=== PATIENT | male | born 1995 | race Caucasian/White ===

== ENCOUNTER 2020-05-18 06:53 | Outpatient (NON) | payer OTHER, SELFPAY ==
[2020-05-19 18:31] LABS: SARS-CoV-2 RNA PCR Negative
== END 2020-05-18 06:54 ==
PROVIDERS: PCP Family Medicine; Visit Provider Family Medicine
DX: Z20.828 Contact with and (suspected) exposure to other viral communicable diseases (principal); R09.89 Other specified symptoms and signs involving the circulatory and respiratory systems
CPT/HCPCS: 87635; C9803; U0003

== ENCOUNTER 2021-08-13 20:56 | Emergency (ER) | payer OTHER, SELFPAY ==
[2021-08-13] VITALS (9 sets, daily range): BP systolic 107–138; BP diastolic 78–90; PULSE 69–91; RESP 18–22; TEMP 37.2; O2SAT 96
--- NOTE | ~2021-08-13 | XR_ITS ---
EXAMINATION: XR chest 2V DATE: 08/13/2021 21:39 INDICATION: Cough and wheezing TECHNIQUE: PA and lateral views of the chest are obtained. COMPARISON: 12/09/2014 FINDINGS: The lungs are free of acute opacities. There is no pleural effusion or pneumothorax. The ca rdiomediastinal silhouette is normal. The visualized bones and soft tissues are unremarkable. IMPRESSION: 1. No acute cardiopulmonary abnormality. Reviewed, dictated and finalized at location [facility]
--- NOTE | 2021-08-13 21:15 | ED.SOB ---
HPI - SOB/Dyspnea General Chief Complaint: Shortness of Breath/Dyspnea Stated Complaint: SOB Time Seen by Provider: 08/13/21 21:06 Source: patient Mode of arrival: ambulatory Limitations: no limitations History of Present Illness HPI Narrative: This is a 25-year-old male that presents to the emergency department for shortness of breath noted since last night. Associated with a productive cough and wheezing. No previous history of asthma. Is not a cigarette smoker, but does report occasional vaping. He is COVID vaccinated. Denies fever, or sore throat. Related Data Allergies Allergy/AdvReac Type Severity Reaction Status Date / Time cefprozil Allergy Unknown Unverified 12/09/14 18:35 Review of Systems Review of Systems: CONSTITUTIONAL: Denies fever ENT: Denies sore throat RESPIRATORY: Reports cough and dyspnea. All systems reviewed & are unremarkable except as noted in HPI and below PMFSH Past Medical History Medical History (Updated 08/13/21 @ 23:38 by Blossmo Ward PA-C) History of anxiety Social History Social History (Updated 08/13/21 @ 21:16 by Blossom Ward PA-C) Smoking status: Current some day smoker Tobacco type: e-cigarettes/vaping Exam Narrative: GENERAL: Well-appearing, well-nourished, and in no acute distress. HEAD: Normocephalic, atraumatic. EYES: EOMI. ENT: Nares clear, no rhinorrhea or epistaxis. Mucous membranes moist. Oropharynx without tonsillar hypertrophy exudate or other lesions. Bilateral TMs pearly kincaid non-bulging NECK: Supple. No adenopathy or masses. CHEST: No respiratory distress. Diffuse expiratory wheezing. No rales or rhonchi HEART: Regular rate and rhythm. No murmur heard. Normal peripheral pulses. EXTREMITIES: Normal range of motion. No edema. SKIN: Warm, dry, no rash. NEURO: No focal deficits. Alert and oriented x3. PSYCH: Normal mood and affect Course Reevaluation(s) Reevaluation #1: Patient with improved aeration. Only very mild expiratory wheezes now noted. Patient reports feeling much better Date: 08/13/21 Time: 23:35 Vital Signs Vital signs: Vital Signs Temperature 98.9 F 08/13/21 21:06 Pulse Rate 91 08/13/21 21:06 Respiratory Rate 22 H 08/13/21 21:06 Blood Pressure 138/90 08/13/21 21:06 Pulse Oximetry 96 08/13/21 21:06 Temperature 98.9 F 08/13/21 21:06 Pulse Rate 84 08/13/21 23:12 Respiratory Rate 21 H 08/13/21 23:12 Blood Pressure 133/82 08/13/21 22:05 Pulse Oximetry 96 08/13/21 22:05 MDM - SOB/Dyspnea MDM Narrative Medical decision making narrative: Patient presents to the ER for cough with wheezing. He is afebrile and nontoxic-appearing. Oxygen saturation has remained normal on room air. Chest x-ray without acute cardiopulmonary abnormality. Patient is COVID vaccinated. Reports he had a negative Covid test today. Patient with diffuse wheezing on exam upon arrival. Given dose of steroid and nebulizer treatments with relief. Aeration improved, patient reports feeling much better and ready for discharge. Patient will be continued on oral steroids and prescribed albuterol as needed. He is to follow-up with his primary care doctor. He was given warnings to return to the ER Imaging Data Radiologist's impression: ITS Impressions Chest X-Ray 08/13/21 21:47 IMPRESSION: 1. No acute cardiopulmonary abnormality. Critical Care Time Critical Care Time Critical Care Time: No Discharge Plan Discharge Clinical Impression: Wheezing Patient Disposition: Home, Self-Care Condition: Stable Instructions: Wheezing (ED) Additional Instructions: Return to the emergency department if you experience fever, chest pain, shortness of breath, or any other symptoms that are concerning to you Albuterol 2 puffs every 4-6 hours as needed for shortness of breath or wheezing. Continue steroid (prednisone) as prescribed. You were given your first dose of steroid today, you may continue this tomor
[2021-08-13] MEDS: ALBUTEROL SULFATE NEB 2.5 MG/0.5 ML INH 5 MG INHALATION (21:23)
[2021-08-13] MEDS: IPRATROPIUM BR 0.02% INH SOLN 0.5 MG/2.5 ML VIAL INHALATION (21:24)
[2021-08-13] MEDS: methylPREDNISolone SOD SUCC 125 MG VIAL IV PUSH (21:32)
[2021-08-13] MEDS: ALBUTEROL SULFATE NEB 2.5 MG/0.5 ML INH 15 MG INHALATION (22:08)
[2021-08-13] MEDS: IPRATROPIUM BR 0.02% INH SOLN 0.5 MG/2.5 ML VIAL 1.5 MG INHALATION (22:08)
== END 2021-08-13 23:44 | disposition home or self-care (01) ==
PROVIDERS: Emergency Provider General Practice; PCP Family Medicine
DX: R06.2 Wheezing (principal); F17.290 Nicotine dependence, other tobacco product, uncomplicated
CPT/HCPCS: 71046; 94640; 96374; 99284; A9270; J2930